=== PATIENT | male | born 1985 | race Native Hawaiian/Other Pacific Islander ===

== ENCOUNTER 2018-08-18 20:37 | Emergency (ER) | payer OTHER ==
[2018-08-18 20:44] VITALS: BP 112/74; PULSE 71; TEMP 98.2; BMI 34.7
--- NOTE | 2018-08-18 21:13 | PDOC ---
History of Present Illness - General Chief Complaint: Pain Stated Complaint: Pain, Acute Time Seen by Provider: 08/18/18 21:04 - History of Present Illness Initial Comments: 08/18/18 21:10 42-year-old male without comorbidities presents for evaluation of right knee pain. He states he was stepping out of a car about a week ago felt an onset of pain in his right knee and has been having right knee pain since that time Past History - Past Medical History Allergies/Adverse Reactions: Allergies Allergy/AdvReac Type Severity Reaction Status Date / Time No Known Allergies Allergy Verified 08/18/18 20:41 Home Medications: Ambulatory Orders NK [No Known Home Medication] 08/18/18 COPD: No Other medical history: Pt denies - Suicide/Smoking/Psychosocial Hx Smoking History: Never smoked Have you smoked in the past 12 months: No Information on smoking cessation initiated: No Hx Alcohol Use: No Drug/Substance Use Hx: Yes (Marijuana) Review of Systems - Review of Systems Musculoskeletal: Yes: Joint Pain *Physical Exam - Vital Signs Last Vital Signs Temp Pulse Resp BP Pulse Ox 98.2 F 71 18 112/74 99 08/18/18 20:42 08/18/18 20:42 08/18/18 20:42 08/18/18 20:42 08/18/18 20:42 - Physical Exam Comments: 08/18/18 21:11 Right knee skin color and temperature are normal range of motion 0-30. He has no instability to varus and valgus stress. He resist Martin's maneuver and posterior drawer. No medial lateral joint line tenderness. His extensor mechanism is intact. His thighs and calves are soft and nontender. He has no gross sensorimotor deficits is neurovascular intact. Moderate Sedation - Procedure Monitoring Vital Signs: Procedure Monitoring Vital Signs Temperature 98.2 F 08/18/18 20:42 Pulse Rate 71 08/18/18 20:42 Respiratory Rate 18 08/18/18 20:42 Blood Pressure 112/74 08/18/18 20:42 O2 Sat by Pulse Oximetry (%) 99 08/18/18 20:42 *DC/Admit/Observation/Transfer Diagnosis at time of Disposition: Right knee sprain - Discharge Dispostion Disposition: HOME Condition at time of disposition: Stable Decision to Admit order: No - Referrals Referrals: Jono Galeana MD [Staff Physician] - - Patient Instructions Printed Discharge Instructions: DI for Knee Sprain, Knee Sprain, How to Use an Elastic Bandage-Knee Sprain Additional Instructions: Weight-bear as tolerated with the use of the knee immobilizer and crutches. Return to the emergency room should symptoms worsen or go unresolved. Please follow-up with orthopedic surgery in 2-3 days for further evaluation and treatment options. He may take Tylenol and Motrin as directed for pain. Move the knee immobilizer at home for gentle range of motion. Do not let you knee get stiff - Post Discharge Activity
== END 2018-08-18 21:19 | disposition home or self-care (01) ==
LOC: JERFT 20:37
PROC: 2W3QXYZ Immobilization of Right Lower Leg using Other Device (ICD-10-PCS; principal; 2018-08-18)
DX: S83.8X1A Sprain of other specified parts of right knee, initial encounter (principal); V48.4XXA Person boarding or alighting a car injured in noncollision transport accident, initial encounter; Y92.488 Other paved roadways as the place of occurrence of the external cause; Y93.89 Activity, other specified; Y99.8 Other external cause status
CPT/HCPCS: 99281-25